=== PATIENT | male | born 1945 | race Caucasian/White ===

== ENCOUNTER 2016-12-31 05:25 | Inpatient (IN) | payer OTHER ==
[2016-12-19 08:13] VITALS: BMI 29.0
--- NOTE | 2016-12-19 08:56 | PAT Medication Instructions ---
Service Date Dec 19, 2016. Current Home Medication List Ibuprofen (Advil), 400-800 MG PO PRN Tamsulosin Hcl (Flomax), 0.4 MG PO QPM Medication Instructions For Your Scheduled Surgery - Check with surgeon for instructions: Ibuprofen (Advil), 400-800 MG PO PRN - Take the following medications as scheduled the night before surgery: Tamsulosin Hcl (Flomax), 0.4 MG PO QPM If you have any questions please call us at [phone] or [phone] or [phone]
--- NOTE | 2016-12-19 09:19 | DIAGNOSTIC IMAGING REPORT ---
CHEST PREADMISSION(PA/LAT) HISTORY:71 yearsMale preadmission exam. COMPARISON: None available. TECHNIQUE: Frontal and lateral views of the chest. FINDINGS: Cardiomediastinal and hilar silhouettes are within normal limits. No pneumothorax, pleural effusion, focal airspace consolidation or overt pulmonary edema. Moderate degenerative changes are seen within the bilateral AC joints. The bones appear to be grossly intact. IMPRESSION: No acute cardiopulmonary process. The above report was generated using voice recognition software. It may contain grammatical, syntax or spelling errors. Electronically signed by: Andrzej Hernandez M.D. 12/19/2016 9:17 AM Dictated Date/Time: 12/19/2016 9:16 AM
[2016-12-19 09:54] LABS: BASO % 0.6 %; BASO ABS # 0.05 K/uL (0-0.2); COMPLETE YES; EOS % 3.8 %; HEMATOCRIT 49.4 % (42-52); IG% 0.3 %; LYMPH ABS # 1.28 K/uL (1.2-3.4); MEAN CELL VOLUME 92.5 fL (80-100); MEAN CORPUSCULAR HEMOGLOBIN 31.3 pg (25-34); MEAN CORPUSCULAR HGB CONC 33.8 g/dl (32-36); MEAN PLATELET VOLUME 10.6 fL (7.4-10.4); MONO % 8.1 %; NEUT % 71.2 %; PLATELET COUNT 193 K/uL (130-400); RED BLOOD COUNT 5.34 M/uL (4.7-6.1); WHITE BLOOD COUNT 7.98 K/uL (4.8-10.8)
[2016-12-19 10:09] LABS: URINE APPEARANCE CLEAR (CLEAR); URINE BILIRUBIN NEG (NEG); URINE COLOR DK YELLOW; URINE NITRITE NEG (NEG); URINE PH 5.5 (4.5-7.5); URINE SPECIFIC GRAVITY 1.026 (1.000-1.030); UROBILINOGEN NEG (NEG)
[2016-12-19 10:14] LABS: MANUAL MICROSCOPIC REQUIRED? NO; REVIEW REQ? NO
[2016-12-19 10:51] LABS: BUN/CREATININE RATIO 14.8 (10-20); CALCIUM 9.4 mg/dl (8.5-10.1); POTASSIUM 4.9 mmol/L (3.5-5.1)
[~2016-12-31] VITALS: Ht 177.8 cm; Wt 92.4 kg
[2016-12-31] VITALS (7 sets, daily range): BP systolic 125–146; BP diastolic 62–88; PULSE 73–85; TEMP 36.5–36.8; O2SAT 93–98; Ht 177.8 cm; Wt 92.4 kg
[~2016-12-31 05:25] MED LIST: IBUP-1050 PO; IV FLUIDS COMPLETED PRN; TAMS0.4C38 PO
[2016-12-31] MEDS ORDERED: CEFAZOLIN 2000 MG/60 ML D5W 60 ML IV SCH (06:00)
[2016-12-31] MEDS ORDERED: LACTATED RINGER'S 1000ML 1,000 ML IV SCH (06:00)
[2016-12-31] MEDS ORDERED: EpHEDrine SULFATE INJ 50 MG/ML AMP IV PRN (06:45)
[2016-12-31] MEDS ORDERED: ONDANSETRON INJ 2 MG/ML 2 ML VIAL IV PRN ×2 (06:45→10:30)
[2016-12-31] MEDS ORDERED: FENTANYL CITRATE INJ 50 MCG/1 ML 2 ML VIAL IV PRN (06:45)
[2016-12-31] MEDS ORDERED: ATROPINE SULFATE 0.1 MG/ML 5ML SYR IV PRN (06:45)
[2016-12-31] MEDS ORDERED: HYDROmorphone INJ 1 MG/ML SYR IV PRN (06:45)
[2016-12-31] MEDS ORDERED: ONDANSETRON INJ 2 MG/ML 2 ML VIAL ONE ×2 (07:19→10:21)
[2016-12-31] MEDS ORDERED: GLYCOPYRROLATE INJ 0.2 MG/ML VIAL ONE (07:19)
[2016-12-31] MEDS ORDERED: NEOSTIGMINE METHYLSULFATE 1 MG/ML 10ML VIAL ONE (07:19)
[2016-12-31] MEDS ORDERED: LIDOCAINE HCL 2% 2 ML VIAL (20MG/ML) ONE (07:19)
[2016-12-31] MEDS ORDERED: PROPOFOL IV EMULSION 10 MG/ML 20 ML VIAL IV ONE (07:19)
[2016-12-31] MEDS ORDERED: FENTANYL CITRATE INJ 50 MCG/1 ML 2 ML VIAL ONE ×2 (07:19→09:13)
[2016-12-31] MEDS ORDERED: MIDAZOLAM HCL 1 MG/ML 2ML VIAL ONE (07:19)
[2016-12-31] MEDS ORDERED: ROCURONIUM BROMIDE 10 MG/ML 5 ML VIAL ONE ×2 (07:19→08:40)
[2016-12-31] MEDS ORDERED: SODIUM CHLORIDE 0.9% PF 50 ML VIAL ONE (07:31)
[2016-12-31] MEDS ORDERED: BUPIVACAINE/EPINEPHRINE 0.5% MPF 1:200,000 10 ML VIAL ONE ×3 (07:31→07:34)
[2016-12-31] MEDS ORDERED: BACITRACIN 50000 UNIT VIAL ONE (07:31)
[2016-12-31] MEDS ORDERED: HYDROmorphone INJ 2 MG/ML SYR/VIAL ONE (07:32)
[2016-12-31] MEDS ORDERED: BUPIVACAINE 0.5 % 5 MG/1 ML MPF 30ML VIAL ONE (07:33)
--- NOTE | 2016-12-31 07:37 | History & Physical Bridge Note ---
H&P Re-Evaluation Bridge Note: I have examined the patient, reviewed the History & Physical and in the interval since the performance of the History & Physical I have noted the following changes of clinical significance: No changes noted
--- NOTE | 2016-12-31 07:39 | History and Physical ---
History & Physical Date Dec 31, 2016. Chief Complaint back and leg pain History of Present Illness The patient is a 71 year old male with complaints of Additional History Hepatic Disease: No Endocrine Disorder: No Kidney Disease: No Hypertension: No Heart Disease: No Bleeding Tendencies: No Infectious Diseases: No Allergies Coded Allergies: No Known Allergies (Unverified , 12/31/16) Home Medications Scheduled Ibuprofen (Advil), 400-800 MG PO PRN Tamsulosin Hcl (Flomax), 0.4 MG PO QPM Physical Examination Skin: warm/dry, no rash Eyes: normal inspection, EOMI, sclerae normal ENT: normal ENT inspection, pharynx normal Head: normocephalic, atraumatic Neck: supple, no adenopathy, trachea midline Respiratory/Chest: lungs clear, normal breath sounds, no respiratory distress Cardiovascular: regular rate, rhythm, no edema, no murmur Abdomen / GI: normal bowel sounds, non tender Back: normal inspection Extremities: normal inspection, normal range of motion Neurologic/Psych: no motor/sensory deficits, alert, normal reflexes, oriented x 3 Diagnosis lumbar stenosis Plan of Treatment Decompression and fusion L3 to S1.
[2016-12-31] MEDS ORDERED: DEXAMETHASONE SOD INJ 4 MG/ML VIAL ONE (08:57)
[2016-12-31] MEDS ORDERED: SODIUM CHLORIDE 0.9% 1000ML 1,000 ML IV SCH (10:16)
[2016-12-31] MEDS ORDERED: KETOROLAC TROMETHAMINE 30 MG/ML VIAL ONE (10:21)
--- NOTE | 2016-12-31 10:23 | [facility] Operative Report ---
Operative Report Operative Date Dec 31, 2016. Pre-Operative Diagnosis Lumbar Stenosis Post-Operative Diagnosis Lumbar Stenosis Procedure(s) Performed #1 lumbar decompression medial facetectomies foraminotomies L3 4 L4 5 L5-S1. #2 posterior spinal fusion L3 4 L4 5 L5-S1. #3 placement of posterior segmental instrumentation L3 4 L4 5 L5-S1. #4 interbody fusion L5-S1. #5 placement peek cage 12 x 26 mm at L5-S1. #6 placement of locally harvested morcellized autograft in the posterior lateral gutters. #7 placement infuse collagen sponge combined with Master graft in the posterior lateral gutters Myrtle bone graft in the interbody space. Surgeon Dr. Braden Kendall Database Technician Surgeon(s) Armida An PA-C Findings Severe spinal stenosis with spondylolisthesis. Specimens none per surgeon Description of Procedure Patient was met with preoperatively case discussed all questions addressed. Patient was then taken to the operative suite and after undergoing intubation placed in a prone position on the Siddharth table on top of the Randall frame. All bony promises well-padded eyes inspected to ensure no external pressure. Lumbar spine was prepped and draped in the normal sterile fashion. Sharp dissection with the assistance of Bovie cautery performed down to and exposing the lamina and transverse processes of L3 L4-L5 and the sacral alar bilaterally. From a caudal to cephalad fashion complete laminectomy of L5 L4 and L3 was performed obvious pars defect was appreciated L5 bilaterally. Severe lateral recess and foraminal disease was appreciated and addressed. After decompression pedicle screws were placed in L3-L4 L5-S1 levels bilaterally with the assistance of fluoroscopy in the appropriately sized tamara placed through a transforaminal approach a complete discectomy of L5-S1 was performed and plate create a subcortical bleeding bone and a 12 x 26 mm peek cage filled with Myrtle bone grafting tapped in position. Rods were then compressed and locked and final position bilaterally. Cross-link was locked in position. The transverse processes of L3 L4-L5 and the sacral alar burred to subcortical bleeding bone infuse collagen sponge mask graft locally harvested morcellized autograft placed. A cross-link locked in position. 15 round REI drain inserted. Incision then closed with 1 Vicryl in the fascia tubercle subcutaneously for Monocryl for final skin closure Steri-Strips sterile dressing placed patient awakened and taken to PACU in stable condition. Please note Armida Malagon was present throughout the entire procedure involved in patient positioning complex portions of the procedure and final skin closure. I attest to the content of the Intraoperative Record and any orders documented therein. Any exceptions are noted below.
--- NOTE | 2016-12-31 10:26 | DIAGNOSTIC IMAGING REPORT ---
LUMBAR SPINE 2 OR 3 VIEW HISTORY: 71 years-old Male L3-S1 DECOMPRESSION COMPARISON: None available TECHNIQUE: Frontal and lateral spot fluoroscopic images of the lumbar spine were obtained for total of 2 images utilizing 32.5 minutes of fluoroscopy time. Interpretation of the images was provided after the conclusion of the study FINDINGS/IMPRESSION: There has been laminectomy with posterior interbody tamara and screw fixation at the L3-S1 levels. Discectomy changes are seen at L5-S1. Alignment appears satisfactory on these images. Please see operative report for further details. The above report was generated using voice recognition software. It may contain grammatical, syntax or spelling errors. Electronically signed by: Andrzej Hernandez M.D. 12/31/2016 10:25 AM Dictated Date/Time: 12/31/2016 10:23 AM
[2016-12-31] MEDS ORDERED: METOCLOPRAMIDE HCL INJ 5 MG/ML 2 ML VIAL IV PRN (10:30)
[2016-12-31] MEDS ORDERED: DO NOT ADMINISTER PNEUMOCOCCAL VACCINE PRN ×2 (10:30)
[2016-12-31] MEDS ORDERED: NALOXONE HCL 0.4 MG/1 ML VIAL/CARP IV PRN (10:30)
[2016-12-31] MEDS ORDERED: FAMOTIDINE 20 MG TAB PO PRN (10:30)
[2016-12-31] MEDS ORDERED: SOD PHOSPHATE/SOD BIPHOSPHATE ENEMA 132 ML BTL PR PRN (10:30)
[2016-12-31] MEDS ORDERED: ALUMINUM/MAGNESIUM SUSP 30 ML UDC PO PRN (10:30)
[2016-12-31] MEDS ORDERED: PROMETHAZINE HCL INJ 12.5 MG in SODIUM CHLORIDE 0.9% 50ML 50 ML IV PRN (10:30)
[2016-12-31] MEDS ORDERED: hydrOXYzine HCL 25 MG TAB PO PRN (10:30)
[2016-12-31] MEDS ORDERED: LORAZEPAM 0.5 MG TAB PO PRN (10:30)
[2016-12-31] MEDS ORDERED: DO NOT ADMINISTER FLU VACCINE PRN ×3 (10:30)
[2016-12-31] MEDS ORDERED: MAGNESIUM HYDROXIDE SUSP 30 ML UDC PO PRN (10:30)
[2016-12-31] MEDS ORDERED: ACETAMINOPHEN IV 100 ML IV PRN (10:30)
[2016-12-31] MEDS ORDERED: BISACODYL 10 MG SUPP PR PRN (10:30)
[2016-12-31] MEDS ORDERED: ACETAMINOPHEN 500 MG TAB PO PRN (10:30)
[2016-12-31] MEDS ORDERED: LORAZEPAM INJ 0.5 MG in SYRINGE 0 ML IV PRN (10:30)
[2016-12-31] MEDS: HYDROmorphone HCL 0.5MG/ML 50 ML CASSETTE IV PRN ×4 (10:43→22:55)
--- NOTE | 2016-12-31 11:09 | Anesthesiology Progress Note ---
Anesthesia Post Op Note Date & Time Dec 31, 2016 at 11:09 Vital Signs Pain Intensity: 0 Vital Signs Past 12 Hours Date Time Temp Pulse Resp B/P (MAP) Pulse Ox O2 Delivery O2 Flow Rate FiO2 12/31/16 11:05 78 15 135/72 99 Nasal Cannula 4 12/31/16 10:55 83 16 139/80 99 Oxymask 6 12/31/16 10:45 82 16 128/71 100 Oxymask 10 12/31/16 10:36 36.2 86 16 124/69 97 Oxymask 10 12/31/16 05:45 36.5 73 20 140/88 98 Room Air Notes Mental Status: alert / awake / arousable, participated in evaluation Pt Amnestic to Procedure: Yes Nausea / Vomiting: adequately controlled Pain: adequately controlled Airway Patency, RR, SpO2: stable & adequate BP & HR: stable & adequate Hydration State: stable & adequate Anesthetic Complications: no major complications apparent
[2016-12-31] MEDS ORDERED: FLOSEAL HEMOSTATIC MATRIX 10ML TOP ONE (12:31)
[2016-12-31] MEDS: LACTATED RINGER'S 1000ML 1,000 ML IV SCH ×3 (13:37→23:42)
[2016-12-31] MEDS: CEFAZOLIN IV 2,000 MG in DEXTROSE 5% 50ML 50 ML IV SCH ×2 (14:04→21:27)
[2016-12-31] MEDS: DEXAMETHASONE INJ 6 MG in SYRINGE 0 ML IV SCH ×2 (14:04→21:28)
[2016-12-31] MEDS: TAMSULOSIN HCL 0.4 MG CAP PO SCH (21:27)
[2016-12-31] MEDS: DOCUSATE SODIUM/SENNA 50/8.6MG TAB PO SCH (21:27)
[2017-01-01] VITALS (8 sets, daily range): BP systolic 136–167; BP diastolic 80–98; PULSE 64–79; TEMP 36.4–36.8; O2SAT 95–99
[2017-01-01] MEDS ORDERED: OXYCODONE HCL IR 5 MG TAB (IMMEDIATE RELEASE) PO PRN (06:00)
[2017-01-01] MEDS ORDERED: NALOXONE HCL 0.4 MG/1 ML VIAL/CARP IV PRN (06:00)
[2017-01-01] MEDS ORDERED: HYDROmorphone INJ 1 MG/ML SYR IV PRN (06:00)
[2017-01-01] MEDS ORDERED: DC PCA ONE (06:00)
[2017-01-01] MEDS ORDERED: HYDROCODONE/ACETAMOPHEN 5/325MG TAB PO PRN (06:00)
[2017-01-01] MEDS ORDERED: HYDROmorphone INJ 0.5 MG/0.5 ML SYR IV PRN (06:00)
[2017-01-01 06:02] LABS: BASO % 0.1 %; BASO ABS # 0.01 K/uL (0-0.2); COMPLETE YES; HEMATOCRIT 40.8 % (42-52); IG% 0.2 %; LYMPH % 3.8 %; LYMPH ABS # 0.56 K/uL (1.2-3.4); MEAN CELL VOLUME 92.1 fL (80-100); MEAN CORPUSCULAR HEMOGLOBIN 30.5 pg (25-34); MEAN CORPUSCULAR HGB CONC 33.1 g/dl (32-36); MEAN PLATELET VOLUME 10.2 fL (7.4-10.4); MONO % 4.8 %; NEUT % 91.1 %; PLATELET COUNT 199 K/uL (130-400); RED BLOOD COUNT 4.43 M/uL (4.7-6.1); WHITE BLOOD COUNT 14.87 K/uL (4.8-10.8)
[2017-01-01] MEDS: DEXAMETHASONE INJ 6 MG in SYRINGE 0 ML IV SCH (06:03)
[2017-01-01] MEDS: LACTATED RINGER'S 1000ML 1,000 ML IV SCH (06:03)
[2017-01-01] MEDS ORDERED: NURSING VERBAL MED ORDER ONE (06:15)
[2017-01-01 06:43] LABS: BUN/CREATININE RATIO 11.9 (10-20); CALCIUM 8.4 mg/dl (8.5-10.1); CREATININE 1.3 mg/dl (0.60-1.40); POTASSIUM 3.9 mmol/L (3.5-5.1)
[2017-01-01] MEDS ORDERED: RXC5 PO (07:42)
--- NOTE | 2017-01-01 07:42 | Discharge Instructions ---
Discharge Instructions Date of Service Jan 01, 2017. Admission Reason for Admission: Lumbar Spinal Stenosis Discharge Discharge Diagnosis / Problem: lumbar stenosis Discharge Goals Goal(s): Improve function Activity Recommendations Activity Limitations: per Instructions/Follow-up section . Instructions / Follow-Up Instructions / Follow-Up ACTIVITY RECOMMENDATIONS: SELF CARE INSTRUCTIONS AFTER THORACIC/LUMBAR FUSIONS 1. You may walk to your tolerance. It is good exercise for your legs and back. Expect some back and intermittent leg aches and pains. 2. You may perform "counter-top" level activities (make a sandwich, mee with a project, etc.). 3. No bending or lifting of more than 10 pounds or back twisting of any nature (roll like a log when turning in bed). 4. You may ride in a car for 20-30 minutes at a time. No driving until after your first visit with your doctor. 5. Frequent changes of position and restricting sitting to 30 minutes at a time will help limit the amount of back spasms and stiffness you may experience. 6. You may discontinue the use of ambulatory aids (cane, crutches, etc.) once your strength and confidence allow. 7. You may community coordinator the shower and let water strike your incision when you arrive home at least once daily. Do not take a tub bath, sit in a hot tub or go into a swimming pool until after your first recheck in the office. SPECIAL CARE INSTRUCTIONS: VERY IMPORTANT TO READ AND REVIEW A. Your surgical incision has been closed with a cosmetic suture under the skin that will dissolve in about 6 weeks. In 14 days, you can use a pair of clean scissors and cut the suture that is left outside of the skin at the ends of your incision. 1. The small skin tapes can be removed 7 days after surgery if they have not fallen off by that point. 2. You may keep the wound open to air as much as possible to promote healing after post-op day number 5 unless told otherwise by your doctor. 3. If you think the wound looks like it is becoming infected (redness or worsening drainage) and/or you are experiencing fever, chill or worsening back pain and muscle spasms, contact the office so that we may evaluate you as soon as possible. B. Complications are uncommon, but please contact us if you have any signs or symptoms of: 1. wound infection (fever higher than 102.5 degrees F, redness, separation of wound, drainage, or increasing pain from the incision) 2. blood clots in legs (pain, swelling, redness and warmth in legs) 3. urinary tract infection (fever higher than 102.5 degrees F, burning upon urination or increased frequency of urination) 4. nerve problems (inability to walk on your toes or heels, numbness, loss of bowel or bladder control) 5. any other symptoms that concern you C. Please call the office at if you have any concerns or questions about your operation or recovery. D. No smoking! Smoking drastically decreases the chance of a solid fusion. E. Do not take any anti-inflammatory medications (Indocin, Advil, Motrin, Aspirin, Naprosyn, etc.) as these may inhibit the chance of a solid fusion. Tylenol is okay to take for pain. MANAGING PAIN AFTER SPINAL SURGERY 1. Narcotic medication is intended for short-term use and will be provided for surgical pain. Surgical pain usually lasts for a period of 4-6 weeks. Narcotic medication includes Percocet, Vicodin, Darvocet, Tylenol #3 or Lortab. 2. Longer-term pain is more appropriately treated with non-narcotic medication such as Tylenol ES. 3. Muscle spasm is not appropriately treated with narcotics. Muscle relaxers such as Soma, Flexeril or Skelaxin can be used along with Tylenol ES. 4. Remember that we all live with some "aches and pains". This is not unusual or uncommon after an injury or as we get older. a. Back pain is expected and may include muscle spasms for 4 to 6 weeks after surgery. The pain should gradually improve. If the pain worsens for no apparent reason, please contact the office. b. Intermittent leg pain may also be experienced and should not be concerned about unless it worsens for no apparent reason. If so, please contact the office. 5. We will provide appropriate medication within the normal guidelines of their prescribed use. We will also be very cautious and aware of potential abuse and extended duration of patients' medication needs. a. Pain medications are for your comfort and to assist with sleep and rest so that the tissue can heal. They are not provided in order to return to normal activity and should not be used through the day. To do so or worsening pain at night can result from ongoing tissue damage and development of tolerance to the prescribed medicine. 6. Please allow 2-3 days to process refills. Prescriptions will not be mailed but must be picked up at the office. FOLLOW UP VISIT: Keep your scheduled follow-up appointment. Any questions, please call the office at . Current Hospital Diet Patient's current hospital diet: Regular Diet Discharge Diet Recommended Diet: Regular Diet Procedures Procedures Performed: #1 lumbar decompression medial facetectomies foraminotomies L3 4 L4 5 L5-S1. #2 posterior spinal fusion L3 4 L4 5 L5-S1. #3 placement of posterior segmental instrumentation L3 4 L4 5 L5-S1. #4 interbody fusion L5-S1. #5 placement peek cage 12 x 26 mm at L5-S1. #6 placement of locally harvested morcellized autograft in the posterior lateral gutters. #7 placement infuse collagen sponge combined with Master graft in the posterior lateral gutters Myrtle bone graft in the interbody space. Pending Studies Studies pending at discharge: no Medical Emergencies . Who to Call and When: Medical Emergencies: If at any time you feel your situation is an emergency, please call 911 immediately. . Non-Emergent Contact Non-Emergency issues call your: Primary Care Provider . "Provider Documentation" section prepared by Braden Kendall. . VTE Core Measure Inpt VTE Proph given/why not?: Jaison Perez, SCD's
[2017-01-01] MEDS: TAMSULOSIN HCL 0.4 MG CAP PO SCH (20:33)
[2017-01-01] MEDS: DOCUSATE SODIUM/SENNA 50/8.6MG TAB PO SCH (20:33)
[2017-01-02] MEDS: POLYETHYLENE (MIRALAX) 17 GM PACK PO SCH ×3 (05:39→18:00)
[2017-01-02 07:46] VITALS: BP 124/76; PULSE 64; TEMP 36.8; O2SAT 99
[2017-01-02 07:48] VITALS: O2SAT 99
--- NOTE | 2017-01-02 15:03 | Progress Note ---
Progress Note Date of Service Jan 02, 2017. Progress Note Patient is postop day 2. Back pain is controlled. Leg pain improved. On exam he is in chair at bedside as good strength testing. Assessment status post lumbar decompression fusion. Plan at this time will maintain the REI drain today. Anticipate home tomorrow.
[2017-01-02] MEDS ORDERED: KETOROLAC TROMETHAMINE 15 MG/ML VIAL IV. PRN (15:15)
[2017-01-02 15:54] VITALS: BP 166/85; PULSE 70; TEMP 36.7; O2SAT 98
[2017-01-02 17:38] VITALS: BP 148/82; PULSE 66
[2017-01-02] MEDS: DOCUSATE SODIUM/SENNA 50/8.6MG TAB PO SCH (21:15)
[2017-01-02] MEDS: TAMSULOSIN HCL 0.4 MG CAP PO SCH (21:15)
[2017-01-02 22:45] VITALS: BP 136/77; PULSE 70; TEMP 36.9; O2SAT 96
[2017-01-02] MEDS ORDERED: NURSING VERBAL MED ORDER ONE (23:15)
[2017-01-03 07:47] VITALS: BP 116/78; PULSE 69; TEMP 37; O2SAT 97
[2017-01-03 08:13] VITALS: O2SAT 97
[2017-01-03 11:21] VITALS: BP 116/78; PULSE 69; TEMP 37; O2SAT 97
--- NOTE | 2017-01-03 13:18 | Discharge Summary ---
Orthopedic Discharge Summary Admission Date/Reason Dec 31, 2016 at 07:30 Lumbar Spinal Stenosis. Discharge Date/Disposition Jan 03, 2017 Home with services Diagnosis Principal Diagnosis: Lumbar spinal stenosis Admission Physical Exam As per Admitting History & Physical. Hospital Course Patient underwent lumbar decompression fusion tolerated this well was taken to the orthopedic floor postoperatively. Postoperative day 1 he was up and amatory progressed nicely throughout postop day #2 substernally and postoperative day 3 discharge home discharge orders and instructions found the chart for further review. Discharge Instructions Please refer to the electronic Patient Visit Report (Discharge Instructions) for additional information.
[2017-01-03 15:31] VITALS: BP 135/76; PULSE 70; TEMP 37.1; O2SAT 95
== END 2017-01-03 18:30 | disposition home health service (06) | DRG 460 ==
LOC: C.ACU 05:25 → C.3E 07:30 → ENRESERV 11:29
PROVIDERS: ADMIT Orthopaedic Surgery Orthopaedic Surgery of the Spine; ATTEND Orthopaedic Surgery Orthopaedic Surgery of the Spine
PROC: 0SG00A1 (ICD-10-PCS; principal; 2016-12-31 07:45)
PROC: 0SG30A1 (ICD-10-PCS; principal; 2016-12-31 07:45)
PROC: 0ST40ZZ Resection of Lumbosacral Disc, Open Approach (ICD-10-PCS; principal; 2016-12-31 07:45)
DX: M48.06 Spinal stenosis, lumbar region (principal); Z79.899 Other long term (current) drug therapy